=== PATIENT | male | born 1995 | race Two or more races ===

== ENCOUNTER 2021-12-25 08:00 | Outpatient (CLI) | payer OTHER | END 2021-12-25 08:05 | disposition home or self-care (01) | LOC: PPH VACUNA 08:00 | PROVIDERS: ATTEND Emergency Medicine Pediatric Emergency Medicine | DX: Z23 Encounter for immunization (principal) ==

== ENCOUNTER 2022-05-14 14:09 | Outpatient (CLI) | payer OTHER | END 2022-05-14 14:15 | disposition home or self-care (01) | LOC: RAD 14:09 | PROVIDERS: ATTEND Chiropractor | DX: M99.01 Segmental and somatic dysfunction of cervical region (principal); M99.02 Segmental and somatic dysfunction of thoracic region; M99.03 Segmental and somatic dysfunction of lumbar region; M99.04 Segmental and somatic dysfunction of sacral region; M99.05 Segmental and somatic dysfunction of pelvic region ==

== ENCOUNTER 2022-06-15 05:32 | Emergency (ER) | payer OTHER ==
[~2022-06-15] VITALS: Ht 180.3 cm; Wt 63.5 kg
== END 2022-06-15 08:27 ==
LOC: ER 05:32
DX: S61.032A Puncture wound without foreign body of left thumb without damage to nail, initial encounter (principal); X58.XXXA Exposure to other specified factors, initial encounter; Y93.89 Activity, other specified; Y92.238 Other place in hospital as the place of occurrence of the external cause; Y99.8 Other external cause status

== ENCOUNTER 2024-01-24 12:36 | Outpatient (CLI) | payer OTHER | END 2024-01-24 12:48 | disposition home or self-care (01) | LOC: RAD 12:36 | PROVIDERS: ATTEND Orthopaedic Surgery | DX: M25.561 Pain in right knee (principal); M25.562 Pain in left knee; M22.02 Recurrent dislocation of patella, left knee | CPT/HCPCS: 73721 ==